=== PATIENT | female | born 1975 | race Caucasian/White ===

== ENCOUNTER 2022-10-18 09:23 | Emergency (ER) | payer OTHER, MEDICAID, SELFPAY ==
--- NOTE | 2022-10-18 09:41 | ED.URI ---
HPI - URI/Sore Throat General Chief Complaint: Upper Respiratory Infection Stated Complaint: Ear Pain/Sore Throat Source: patient and RN notes reviewed Mode of arrival: ambulatory Limitations: no limitations History of Present Illness HPI Narrative: Patient is a 47-year-old female who presents to the [facility] with complaints of bilateral ear pain and sore throat for the past 2-3 days. She denies ear drainage. Patient states that she was treated for strep 2-3 weeks ago with azithromycin. She states that she feels as if the symptoms never fully went away. She was directed by her primary care physician to start taking allergy medications for her symptoms. States that she has been taking allergy medications at home without relief. She denies fevers or chills. Denies cough, shortness breath, chest pain. Related Data Allergies Allergy/AdvReac Type Severity Reaction Status Date / Time codeine Allergy Unknown Verified 04/11/17 10:27 Penicillins Allergy Unknown Verified 04/11/17 10:27 Review of Systems Review of Systems: CONSTITUTIONAL: Denies fever, chills, or sweats. EYES: Denies visual changes, redness, or discharge. ENT: Reports bilateral ear pain and sore throat. CARDIOVASCULAR: Denies chest pain, palpitations, or edema. RESPIRATORY: Denies cough or dyspnea. GASTROINTESTINAL: Denies abdominal pain, nausea, vomiting, or diarrhea. GENITOURINARY: Denies dysuria or hematuria. SKIN: Denies rash or itching. MUSCULOSKELETAL: Denies back pain, joint pain, or myalgia. NEUROLOGIC: Denies headache, numbness, or weakness. Pertinent positives per HPI. PMFSH Comments At the time of my signature, I reviewed and agree with the nursing past medical, surgical, social, and family history. There is no relevant family history pertinent to the patient complaint. Exam Narrative: GENERAL: This is a well-nourished, well-developed patient, in no apparent distress. HEAD: normocephalic, atraumatic. EYES: Sclera clear/white. Vision is grossly intact. EARS: External ears normal, auditory canals clear and without drainage. Left TM erythematous and bulging. Right TM erythema noted. Hearing grossly intact. NOSE: External nose normal with no obvious nasal discharge, nares without redness, no rhinorrhea. THROAT: Oropharyngeal erythema. NECK: Neck supple, non-tender without lymphadenopathy, masses or thyromegaly. CARDIOVASCULAR: Regular rate and rhythm without murmurs, gallops, or rubs. RESPIRATORY: Clear to auscultation. Breath sounds equal bilaterally. No wheezes, rales, or rhonchi. GASTROINTESTINAL: Abdomen soft, non-tender, nondistended. Bowel sounds are active. No hepato-splenomegaly, or palpable masses. No guarding. SKIN: warm, intact with no suspicious lesions or rash, good texture and turgor. NEURO: awake, alert, and oriented to person, place and time. There were no obvious focal neurologic abnormalities. Course Course Level of Care: Express Care Visit Vital Signs Vital signs: Vital Signs Temperature 97.9 F 10/18/22 09:43 Pulse Rate 97 10/18/22 09:43 Respiratory Rate 16 10/18/22 09:43 Blood Pressure 125/72 10/18/22 09:43 Pulse Oximetry 98 10/18/22 09:43 Oxygen Delivery Room Air 10/18/22 09:43 Temperature 97.9 F 10/18/22 09:43 Pulse Rate 97 10/18/22 09:43 Respiratory Rate 16 10/18/22 09:43 Blood Pressure 125/72 10/18/22 09:43 Pulse Oximetry 98 10/18/22 09:43 Oxygen Delivery Room Air 10/18/22 09:43 Reviewed MDM - URI/Sore Throat MDM Narrative Medical decision making narrative: Take antibiotics as directed. May given ibuprofen and/or Tylenol as needed for pain and/or fever. Follow up with primary care provider in 7-10 days to have ear rechecked. Oropharyngeal erythema noted. However patient presents with left otitis media, so we will treat her with cefdinir as she has penicillin allergy. Will not test for strep today as the antibiotic will also cover strep if needed. Harini
[2022-10-18 09:43] VITALS: BP 125/72; PULSE 97; RESP 16; TEMP 36.6; O2SAT 98
== END 2022-10-18 10:03 | disposition home or self-care (01) ==
PROVIDERS: Emergency Provider Nurse Practitioner; PCP Family Medicine
DX: H66.002 Acute suppurative otitis media without spontaneous rupture of ear drum, left ear (principal)
CPT/HCPCS: 99203; G0463

== ENCOUNTER 2022-12-07 08:36 | Emergency (ER) | payer MEDICAID, SELFPAY ==
[2022-12-07 08:42] VITALS: BP 130/71; PULSE 81; RESP 16; TEMP 36.2; O2SAT 97
--- NOTE | 2022-12-07 08:54 | ED.NAVMDI ---
HPI - Nausea/Vomiting/Diarrhea General Chief complaint: Nausea/Vomiting/Diarrhea Stated complaint: nausea diarrhea throat Time Seen by Provider: 12/07/22 09:08 Source: patient and RN notes reviewed Mode of arrival: ambulatory Limitations: no limitations History of Present Illness HPI Narrative: 47-year-old female presents with concern for 2-3 day history of diarrhea, nausea, sore throat, nasal congestion, ear pain. She reports she recently traveled within the [place]. She reports diarrhea has resolved foot she remains nauseated. She denies vomiting. She denies abdominal pain. She reports general malaise without fever. Reports body aches MD elicited complaint: nausea and diarrhea Related Data Allergies Allergy/AdvReac Type Severity Reaction Status Date / Time codeine Allergy Unknown Rash Verified 12/07/22 09:01 Penicillins Allergy Unknown Nausea and Verified 12/07/22 09:01 Vomiting Review of Systems Review of Systems: CONSTITUTIONAL: Reports malaise. Denies chills, sweats, or fever. EYES: Denies visual changes, redness, or discharge. ENT: Reports rhinorrhea, congestion, otalgia and sore throat. CARDIOVASCULAR: Denies chest pain, palpitations, or edema. RESPIRATORY: Denies cough. Denies dyspnea. GASTROINTESTINAL: Denies abdominal pain, vomiting. Reports nausea, diarrhea SKIN: Denies rash or itching. MUSCULOSKELETAL: Denies myalgia. NEUROLOGIC: Denies headache. All systems reviewed & are unremarkable except as noted in HPI and below PMFSH Comments At time of signature, agree with nursing past medical, surgical, social and family history. There is no relevant family history pertinent to the presenting complaint Exam Narrative: GENERAL: Well-appearing, well-nourished, and in no acute distress. HEAD: Normocephalic EYES: PERRLA, conjunctivae clear ENT: Nares clear, turbinates edematous and erythematous, clear discharge. Mucous membranes moist. TM pearly eduardo with dull light reflex bilaterally; no tragal tenderness. Oropharynx not erythematous without lesions. Tonsils not enlarged and without exudate, no drooling, no hoarseness, no trismus, uvula midline. NECK: Supple. No lymphadenopathy CHEST: Clear to auscultation, breath sounds equal. No wheezing, rhonchi, rales, or stridor. No respiratory distress, speaks in full sentences. HEART: Regular rate and rhythm. No murmur heard. ABD: Nontender, normal bowel sounds SKIN: Warm, dry, no rash. NEURO: Alert and oriented x3. PSYCH: Normal mood and affect Course Course Emergency Course: Patient is aware of diagnosis, understands and agrees to treatment plan. Anticipatory guidance given. Patient agrees to follow-up as directed and is aware of reasons to seek care at the emergency department. Portions of this record may have been created with voice recognition software Level of Care: Express Care Visit Vital Signs Vital signs: Vital Signs Temperature 97.1 F L 12/07/22 08:42 Pulse Rate 81 12/07/22 08:42 Respiratory Rate 16 12/07/22 08:42 Blood Pressure 130/71 12/07/22 08:42 Pulse Oximetry 97 12/07/22 08:42 Oxygen Delivery Room Air 12/07/22 08:42 Temperature 97.1 F L 12/07/22 08:42 Pulse Rate 81 12/07/22 08:42 Respiratory Rate 16 12/07/22 08:42 Blood Pressure 130/71 12/07/22 08:42 Pulse Oximetry 97 12/07/22 08:42 Oxygen Delivery Room Air 12/07/22 08:42 Reviewed. MDM - Nausea/Vomiting/Diarrhea MDM Narrative Medical decision making narrative: Exam findings show no acute concerns or changes; patient is non-toxic appearing and is in no distress. Patient is appropriate for outpatient treatment and follow-up. Differential Diagnosis Differential diagnosis: Likely traveler's diarrhea, gastroenteritis and other (viral syndrome) Lab Data Attestation: I reviewed the patient's lab results. Critical Care Time Critical Care Time Critical Care Time: No Discharge Plan Discharge Clinical Impression: Acute viral sy
== END 2022-12-07 09:23 | disposition home or self-care (01) ==
PROVIDERS: Emergency Provider Nurse Practitioner
DX: B34.9 Viral infection, unspecified (principal)
CPT/HCPCS: 87081; 87880; 99213; G0463